=== PATIENT | female | born 1935 | race Caucasian/White ===

== ENCOUNTER 2018-08-19 17:38 | Inpatient (IN) | payer MEDICARE, OTHER ==
[~2018-08-19] VITALS: Ht 167.6 cm; Wt 68.0 kg
[2018-08-19] MEDS ORDERED: SODIUM CHLORIDE 0.9% 1,000 ML IV ONE (18:27)
[2018-08-19] MEDS ORDERED: ONDANSETRON HCL 4MG/2ML INJ IV STA (18:27)
[2018-08-19] MEDS ORDERED: MORPHINE SULFATE 4 MG/ML CPJ (NOT FOR IM USE) IV STA (18:27)
[2018-08-19 19:34] LABS: BASOPHILS % 0.3 % (0.0-2.0); EOSINOPHILS % 0.2 % (0.0-5.0); HEMATOCRIT. 31.1 % (36.0-48.0); HEMOGLOBIN. 10.1 g/dL (12.0-16.0); LYMPHOCYTES % 15.4 % (20.0-50.0); MEAN CORPUSCULAR HEMOGLOBIN 27.5 pg (28.0-32.0); MEAN PLATELET VOLUME 10.1 fl (7.4-10.4); MONOCYTES % 3.8 % (2.0-8.0); NEUTROPHILS % 80.3 % (40.0-76.0); PLATELET 191 x1000/uL (130-400); RED BLOOD CELL COUNT 3.66 mill/uL (4.2-5.4); RED CELL DISTRIBUTION WIDTH 17.4 % (11.6-14.6)
[2018-08-19 19:38] LABS: CHLORIDE 107 mEq/L (98-107)
[2018-08-19 19:39] LABS: INR 2.9; PARTIAL THROMBOPLASTIN TIME 35.5 sec (23.4-31.0); PROTHROMBIN TIME 28.7 sec (9.1-11.1)
[2018-08-19 19:47] LABS: CREATINE KINASE 61 IU/L (26-192)
[2018-08-20] VITALS (7 sets, daily range): BP systolic 112–132; BP diastolic 50–73
[2018-08-20] MEDS ORDERED: DEXTROSE 50% WATER 50ML SYRINGE IV PRN (02:15)
[2018-08-20] MEDS: BLOOD SUGAR DIAGNOSTIC STRIP TEST SCH ×4 (06:41→21:03)
[2018-08-20] MEDS: INSULIN LISPRO 100 UNITS/ML SUBCUT SCH ×4 (06:42→21:00)
[2018-08-20] MEDS: ASPIRIN 81MG TABLET PO SCH (08:50)
[2018-08-20] MEDS: HYDROCODONE/ACETAMINOPHEN 5/325MG TABLET PO PRN ×2 (08:50→17:46)
[2018-08-20] MEDS ORDERED: ENOXAPARIN 40MG/0.4ML SYR SUBCUT SCH (09:00)
[2018-08-20] MEDS ORDERED: ENOXAPARIN 30MG/0.3ML SYR SUBCUT SCH (09:00)
[2018-08-20 11:28] LABS: BASOPHILS % 0.3 % (0.0-2.0); EOSINOPHILS % 0.3 % (0.0-5.0); HEMATOCRIT. 30.2 % (36.0-48.0); HEMOGLOBIN. 9.9 g/dL (12.0-16.0); MEAN CORPUSCULAR HEMOGLOBIN 27.7 pg (28.0-32.0); MEAN CORPUSCULAR VOLUME 84.4 fL (81.0-99.0); MEAN PLATELET VOLUME 10.2 fl (7.4-10.4); MONOCYTES % 7.8 % (2.0-8.0); NEUTROPHILS % 66.6 % (40.0-76.0); PLATELET 169 x1000/uL (130-400); RED BLOOD CELL COUNT 3.58 mill/uL (4.2-5.4); RED CELL DISTRIBUTION WIDTH 17.2 % (11.6-14.6)
[2018-08-20 11:35] LABS: CHLORIDE 106 mEq/L (98-107)
[2018-08-20 11:43] LABS: LDL CHOLESTEROL 68 mg/dL (5-100)
[2018-08-20 11:44] LABS: CREATINE KINASE 71 IU/L (26-192); HDL CHOLESTEROL 69 mg/dL (40-59)
[2018-08-20 11:47] LABS: CREATINE KINASE MB FRACTION < 1.0 ng/mL (0.5-3.6)
[2018-08-20] MEDS ORDERED: CLONIDINE 0.1MG TABLET PO PRN (16:15)
[2018-08-20] MEDS ORDERED: SODIUM CHLORIDE 0.45% 1,000 ML IV SCH (16:30)
[2018-08-20 16:45] LABS: D-DIMER 1.39 mg/L FEU (<0.50); INR 2.3; PROTHROMBIN TIME 22.5 sec (9.1-11.1)
[2018-08-20 16:52] LABS: CREATINE KINASE 74 IU/L (26-192)
[2018-08-20 16:57] LABS: CREATINE KINASE MB FRACTION < 1.0 ng/mL (0.5-3.6)
[2018-08-20] MEDS ORDERED: LEVOFLOXACIN 500MG PREMIX 100 ML IV NR (18:00)
[2018-08-20 21:56] LABS: CREATINE KINASE 63 IU/L (26-192)
[2018-08-20 21:57] LABS: CREATINE KINASE MB FRACTION < 1.0 ng/mL (0.5-3.6)
[2018-08-21] VITALS: BP 129/60
[2018-08-21] MEDS: HYDROCODONE/ACETAMINOPHEN 5/325MG TABLET PO PRN ×4 (00:06→14:25)
[2018-08-21 04:00] VITALS: BP 128/75
[2018-08-21] MEDS: BLOOD SUGAR DIAGNOSTIC STRIP TEST SCH ×4 (06:39→21:10)
[2018-08-21] MEDS: INSULIN LISPRO 100 UNITS/ML SUBCUT SCH ×4 (06:39→21:00)
[2018-08-21 08:00] VITALS: BP_SYST 148; BP_SYST 151; BP_SYST 156; BP_DIAS 60; BP_DIAS 78; BP_DIAS 86
[2018-08-21] MEDS: ASPIRIN 81MG TABLET PO SCH (09:21)
[2018-08-21] MEDS: DOCUSATE SODIUM 100MG CAPSULE PO PRN (09:39)
[2018-08-21] MEDS ORDERED: IOHEXOL-350 100 ML BOTTLE ONE (11:08)
[2018-08-21 11:36] LABS: HEMATOCRIT 32.9 % (36.0-48.0); HEMOGLOBIN 10.8 g/dL (12.0-16.0); MEAN CORPUSCULAR HEMOGLOBIN 27.4 pg (28.0-32.0); MEAN CORPUSCULAR VOLUME 83.9 fL (81.0-99.0); PLATELET 182 x1000/uL (130-400); RED BLOOD CELL COUNT 3.93 mill/uL (4.2-5.4); RED CELL DISTRIBUTION WIDTH 17.5 % (11.6-14.6)
[2018-08-21 11:39] LABS: INR 1.5; PROTHROMBIN TIME 15.2 sec (9.1-11.1)
[2018-08-21 11:48] LABS: CHLORIDE 102 mEq/L (98-107)
[2018-08-21 12:00] VITALS: BP 173/77
[2018-08-21] MEDS ORDERED: CLONIDINE 0.2MG TABLET PO PRN (15:00)
[2018-08-21] MEDS: ENOXAPARIN 80MG/0.8ML SYR SUBCUT SCH (15:57)
[2018-08-21 16:00] VITALS: BP 147/91
[2018-08-21] MEDS: LEVOFLOXACIN 250MG PREMIX 50 ML IV SCH (18:09)
[2018-08-21] MEDS: DILTIAZEM HCL 30MG TABLET PO SCH (18:09)
[2018-08-21 20:00] VITALS: BP 145/76
[2018-08-22] VITALS (8 sets, daily range): BP systolic 104–141; BP diastolic 49–62
[2018-08-22] MEDS: HYDROCODONE/ACETAMINOPHEN 5/325MG TABLET PO PRN ×2 (00:11→06:12)
[2018-08-22] MEDS: DILTIAZEM HCL 30MG TABLET PO SCH ×4 (00:12→18:52)
[2018-08-22] MEDS: ENOXAPARIN 80MG/0.8ML SYR SUBCUT SCH ×2 (02:49→15:14)
[2018-08-22] MEDS: BLOOD SUGAR DIAGNOSTIC STRIP TEST SCH ×4 (06:14→21:31)
[2018-08-22] MEDS: INSULIN LISPRO 100 UNITS/ML SUBCUT SCH ×3 (06:15→21:00)
[2018-08-22 06:45] LABS: HEMATOCRIT 31.6 % (36.0-48.0); HEMOGLOBIN 10.5 g/dL (12.0-16.0); MEAN CORPUSCULAR HEMOGLOBIN 27.7 pg (28.0-32.0); MEAN CORPUSCULAR VOLUME 83.2 fL (81.0-99.0); PLATELET 171 x1000/uL (130-400); RED BLOOD CELL COUNT 3.79 mill/uL (4.2-5.4); RED CELL DISTRIBUTION WIDTH 17.1 % (11.6-14.6)
[2018-08-22 06:59] LABS: CHLORIDE 103 mEq/L (98-107)
[2018-08-22 07:19] LABS: LDL CHOLESTEROL 82 mg/dL (5-100)
[2018-08-22 07:21] LABS: HDL CHOLESTEROL 66 mg/dL (40-59)
[2018-08-22] MEDS: ASPIRIN 81MG TABLET PO SCH (09:11)
[2018-08-22] MEDS: ACETAMINOPHEN 325MG TABLET PO PRN ×3 (11:31→17:20)
[2018-08-22] MEDS: LEVOFLOXACIN 250MG PREMIX 50 ML IV SCH (18:52)
[2018-08-23] VITALS (7 sets, daily range): BP systolic 114–146; BP diastolic 50–70
[2018-08-23] MEDS: ACETAMINOPHEN 325MG TABLET PO PRN (01:10)
[2018-08-23] MEDS: ENOXAPARIN 80MG/0.8ML SYR SUBCUT SCH ×2 (01:11→13:46)
[2018-08-23] MEDS: DILTIAZEM HCL 30MG TABLET PO SCH ×4 (01:11→18:25)
[2018-08-23] MEDS: DOCUSATE SODIUM 100MG CAPSULE PO PRN (05:42)
[2018-08-23] MEDS: HYDROCODONE/ACETAMINOPHEN 5/325MG TABLET PO PRN ×2 (05:43→09:50)
[2018-08-23] MEDS: BLOOD SUGAR DIAGNOSTIC STRIP TEST SCH ×4 (05:53→21:00)
[2018-08-23] MEDS: INSULIN LISPRO 100 UNITS/ML SUBCUT SCH ×3 (05:53→17:15)
[2018-08-23 06:19] LABS: HEMATOCRIT. 31.8 % (36.0-48.0); HEMOGLOBIN. 10.6 g/dL (12.0-16.0); MEAN CORPUSCULAR HEMOGLOBIN 27.7 pg (28.0-32.0); MEAN CORPUSCULAR VOLUME 83.5 fL (81.0-99.0); MEAN PLATELET VOLUME 10.1 fl (7.4-10.4); PLATELET 179 x1000/uL (130-400); RED BLOOD CELL COUNT 3.81 mill/uL (4.2-5.4); RED CELL DISTRIBUTION WIDTH 17.2 % (11.6-14.6)
[2018-08-23 07:04] LABS: CHLORIDE 105 mEq/L (98-107)
[2018-08-23] MEDS: ASPIRIN 81MG TABLET PO SCH (08:23)
[2018-08-23 08:51] LABS: PLATELET ESTIMATE NORMAL
[2018-08-23 13:36] LABS: INR 1.2; PROTHROMBIN TIME 11.9 sec (9.6-11.0)
[2018-08-23] MEDS: LEVOFLOXACIN 250MG PREMIX 50 ML IV SCH (18:26)
== END 2018-08-23 21:45 | disposition home or self-care (01) | DRG 73 ==
LOC: ER 17:38 → 5WST 21:41 → EDBEDREQ 21:44 → EDBEDREQTM 21:44 → ENRESERV 22:29
PROVIDERS: ADMIT Internal Medicine; ATTEND Internal Medicine
DX: G90.8 Other disorders of autonomic nervous system (principal); I50.33 Acute on chronic diastolic (congestive) heart failure; D68.59 Other primary thrombophilia; E11.65 Type 2 diabetes mellitus with hyperglycemia; I48.2 Chronic atrial fibrillation; I35.0 Nonrheumatic aortic (valve) stenosis; I49.9 Cardiac arrhythmia, unspecified; I11.0 Hypertensive heart disease with heart failure; M48.061 Spinal stenosis, lumbar region without neurogenic claudication; D64.9 Anemia, unspecified; Z79.01 Long term (current) use of anticoagulants; Z87.891 Personal history of nicotine dependence
CPT/HCPCS: 36415; 71045; 71250; 71275; 72131; 80048; 80061; 82550; 82553; 82962; 83036; 83735; 83880; 84443; 84484; 85027; 85379; 93005; 93306; 93880; 93970; 96361; 96374; 96375; 97162; 99285; J1650; J1956; J2270; J2405; J7030; Q9967

== ENCOUNTER 2021-10-03 20:49 | Inpatient (IN) | payer MEDICARE ==
[~2021-10-03] VITALS: Ht 165.1 cm; Wt 65.8 kg
[2021-10-03 23:11] LABS: BASOPHILS % 0.5 % (0.0-2.0); EOSINOPHILS % 0.1 % (0.0-5.0); HEMATOCRIT. 33.6 % (36.0-48.0); MEAN CORPUSCULAR HEMOGLOBIN 28.4 pg (28.0-32.0); MEAN CORPUSCULAR VOLUME 86.6 fL (81.0-99.0); MEAN PLATELET VOLUME 9.1 fl (7.4-10.4); MONOCYTES % 10.3 % (2.0-8.0); NEUTROPHILS % 65.1 % (40.0-76.0); PLATELET 250 x1000/uL (130-400); RED BLOOD CELL COUNT 3.88 mill/uL (4.2-5.4); RED CELL DISTRIBUTION WIDTH 15.3 % (11.6-14.6)
[2021-10-03 23:18] LABS: CHLORIDE 103 mEq/L (98-107)
[2021-10-04 01:55] LABS: CLARITY URINE CLEAR (CLEAR); COLOR URINE YELLOW (YELLOW); KETONES URINE NEGATIVE (NEGATIVE); LEUKOCYTE ESTERASE URINE NEGATIVE (NEGATIVE); NITRITE URINE NEGATIVE (NEGATIVE); OCCULT BLOOD URINE NEGATIVE (NEGATIVE); PH URINE 5.5 (4.5-8.0); PROTEIN URINE NEGATIVE (NEGATIVE); SPECIFIC GRAVITY URINE 1.013 (1.005-1.030)
[2021-10-04] MEDS ORDERED: DEXTROSE 50% WATER 50ML SYRINGE IV PRN (11:15)
[2021-10-04] MEDS ORDERED: MAGNESIUM/ALUMINUM HYDROXIDE/SIMETHICONE 30ML UDC PO PRN (11:15)
[2021-10-04] MEDS ORDERED: ONDANSETRON HCL 4MG/2ML INJ IV PRN (11:15)
[2021-10-04] MEDS ORDERED: ACETAMINOPHEN 325MG TABLET PO PRN (11:15)
[2021-10-04] MEDS ORDERED: CLONIDINE 0.1MG TABLET PO PRN (11:15)
[2021-10-04] MEDS ORDERED: ZOLPIDEM TARTRATE 5MG TABLET PO PRN (11:15)
[2021-10-04] MEDS: DILTIAZEM HCL 30MG TABLET PO SCH ×2 (12:19→23:53)
[2021-10-04] MEDS: ENOXAPARIN 80MG/0.8ML SYR SUBCUT SCH ×2 (12:20→22:21)
[2021-10-04] MEDS: SODIUM CHLORIDE 0.9% INJ 3ML FLUSH IVF SCH ×2 (14:00→22:25)
[2021-10-04] MEDS: BLOOD SUGAR DIAGNOSTIC STRIP TEST SCH ×2 (14:01→21:53)
[2021-10-04] MEDS: INSULIN LISPRO 100 UNITS/ML SUBCUT SCH ×2 (14:09→22:22)
[2021-10-04] MEDS: LORAZEPAM 1MG TABLET PO SCH (17:37)
[2021-10-04 20:00] VITALS: BP 156/66
[2021-10-04] MEDS ORDERED: LORAZEPAM 2MG/ML CPJ IV NR (20:30)
[2021-10-04] MEDS ORDERED: DILTIAZEM HCL 5MG/ML 5ML VIAL IV NR (20:30)
[2021-10-04] MEDS ORDERED: QUET50TA PO (21:31)
[2021-10-04] MEDS ORDERED: APIX5TAB PO (21:31)
[2021-10-04] MEDS ORDERED: METF-414 PO (21:31)
[2021-10-04] MEDS ORDERED: SIMV-46 PO (21:31)
[2021-10-04] MEDS ORDERED: OMEP10CA5 MT (21:31)
[2021-10-04] MEDS: QUETIAPINE FUMARATE 25MG TABLET PO SCH (22:21)
[2021-10-04] MEDS: ATORVASTATIN CALCIUM 40MG TABLET PO SCH (22:21)
[2021-10-05] VITALS: BP 135/63
[2021-10-05 03:47] VITALS: BP 120/45
[2021-10-05] MEDS: BLOOD SUGAR DIAGNOSTIC STRIP TEST SCH ×4 (06:23→21:00)
[2021-10-05] MEDS: DILTIAZEM HCL 30MG TABLET PO SCH ×3 (06:24→09:29)
[2021-10-05] MEDS: OMEPRAZOLE 20MG CAPSULE EXTENDED RELEASE PO SCH (06:24)
[2021-10-05] MEDS: SODIUM CHLORIDE 0.9% INJ 3ML FLUSH IVF SCH ×3 (06:24→22:11)
[2021-10-05 06:57] LABS: BASOPHILS % 0.2 % (0.0-2.0); HEMATOCRIT. 32.8 % (36.0-48.0); HEMOGLOBIN. 10.8 g/dL (12.0-16.0); LYMPHOCYTES % 19.8 % (20.0-50.0); MEAN CORPUSCULAR HEMOGLOBIN 28.8 pg (28.0-32.0); MONOCYTES % 5.8 % (2.0-8.0); NEUTROPHILS % 74.2 % (40.0-76.0); PLATELET 266 x1000/uL (130-400); RED BLOOD CELL COUNT 3.76 mill/uL (4.2-5.4); RED CELL DISTRIBUTION WIDTH 14.9 % (11.6-14.6)
[2021-10-05 07:02] LABS: INR 1.2; PROTHROMBIN TIME 12.6 sec (9.6-11.0)
[2021-10-05 07:17] LABS: CHLORIDE 104 mEq/L (98-107)
[2021-10-05] MEDS: INSULIN LISPRO 100 UNITS/ML SUBCUT SCH ×4 (07:50→22:13)
[2021-10-05 08:00] VITALS: BP 148/46
[2021-10-05] MEDS: APIXABAN 5 MG TABLET PO SCH ×2 (09:28→17:06)
[2021-10-05] MEDS: METFORMIN HCL 500MG TABLET PO SCH (09:28)
[2021-10-05] MEDS: QUETIAPINE FUMARATE 25MG TABLET PO SCH ×2 (09:28→22:10)
[2021-10-05] MEDS: LORAZEPAM 1MG TABLET PO SCH (09:29)
[2021-10-05] MEDS ORDERED: POTASSIUM CHLORIDE 20MEQ/PACKET PO SCH (10:00)
[2021-10-05] MEDS ORDERED: LEVO75TA7 PO (11:47)
[2021-10-05] MEDS ORDERED: POLY17PO3 MT (11:48)
[2021-10-05 12:00] VITALS: BP 102/43
[2021-10-05 16:00] VITALS: BP 117/54
[2021-10-05] MEDS: DILTIAZEM HCL 60MG TABLET PO SCH ×2 (17:05→22:11)
[2021-10-05] MEDS: LORAZEPAM 0.5MG TABLET PO SCH (17:06)
[2021-10-05] MEDS: ACETAMINOPHEN 325MG TABLET PO PRN (19:15)
[2021-10-05 20:00] VITALS: BP 131/57
[2021-10-05] MEDS ORDERED: CARVEDILOL 6.25 MG TABLET PO SCH (21:00)
[2021-10-05] MEDS: ATORVASTATIN CALCIUM 40MG TABLET PO SCH (22:10)
[2021-10-06] VITALS (64 sets, daily range): BP systolic 68–148; BP diastolic 33–85
[2021-10-06] MEDS: DOPAMINE 400MG/250ML PREMIX 250 ML IV PRN ×2 (01:15→10:45)
[2021-10-06] MEDS ORDERED: SODIUM CHLORIDE 0.9% 1000ML BAG (SEPSIS BOLUS) IV STA (01:55)
[2021-10-06] MEDS: DEXT 5%/0.45% NACL 1000ML 1,000 ML IV SCH ×2 (03:02→22:51)
[2021-10-06 04:41] LABS: CHLORIDE 105 mEq/L (98-107)
[2021-10-06] MEDS: OMEPRAZOLE 20MG CAPSULE EXTENDED RELEASE PO SCH (05:43)
[2021-10-06] MEDS: LEVOTHYROXINE SODIUM 75MCG TABLET PO SCH (05:44)
[2021-10-06] MEDS: SODIUM CHLORIDE 0.9% INJ 3ML FLUSH IVF SCH ×3 (05:44→22:30)
[2021-10-06] MEDS: BLOOD SUGAR DIAGNOSTIC STRIP TEST SCH ×4 (06:23→21:00)
[2021-10-06] MEDS: INSULIN LISPRO 100 UNITS/ML SUBCUT SCH ×4 (06:27→21:00)
[2021-10-06 06:34] LABS: BASOPHILS % 0.3 % (0.0-2.0); EOSINOPHILS % 0.5 % (0.0-5.0); HEMATOCRIT. 32.7 % (36.0-48.0); LYMPHOCYTES % 13.3 % (20.0-50.0); MEAN CORPUSCULAR HEMOGLOBIN 28.8 pg (28.0-32.0); MEAN PLATELET VOLUME 10.2 fl (7.4-10.4); MONOCYTES % 6.6 % (2.0-8.0); NEUTROPHILS % 79.3 % (40.0-76.0); PLATELET 286 x1000/uL (130-400); RED BLOOD CELL COUNT 3.81 mill/uL (4.2-5.4); RED CELL DISTRIBUTION WIDTH 15.1 % (11.6-14.6)
[2021-10-06] MEDS: POLYETHYLENE GLYCOL 3350 (17GM) 1 DOSE PACK PO SCH (08:39)
[2021-10-06] MEDS: LORAZEPAM 0.5MG TABLET PO SCH ×2 (09:00→17:00)
[2021-10-06] MEDS: QUETIAPINE FUMARATE 25MG TABLET PO SCH ×2 (09:17→22:29)
[2021-10-06] MEDS: APIXABAN 5 MG TABLET PO SCH ×2 (09:17→17:15)
[2021-10-06] MEDS: METFORMIN HCL 500MG TABLET PO SCH (09:18)
[2021-10-06] MEDS: ACETAMINOPHEN 325MG TABLET PO PRN (09:19)
[2021-10-06] MEDS: ATORVASTATIN CALCIUM 40MG TABLET PO SCH (22:29)
[2021-10-07] VITALS: BP 136/49
[2021-10-07 04:00] VITALS: BP 142/75
[2021-10-07] MEDS: SODIUM CHLORIDE 0.9% INJ 3ML FLUSH IVF SCH ×3 (06:20→21:38)
[2021-10-07] MEDS: BLOOD SUGAR DIAGNOSTIC STRIP TEST SCH ×4 (06:21→21:39)
[2021-10-07] MEDS: LEVOTHYROXINE SODIUM 75MCG TABLET PO SCH (07:40)
[2021-10-07 08:00] VITALS: BP 156/65
[2021-10-07] MEDS: INSULIN LISPRO 100 UNITS/ML SUBCUT SCH ×4 (08:10→21:39)
[2021-10-07] MEDS: OMEPRAZOLE 20MG CAPSULE EXTENDED RELEASE PO SCH (08:33)
[2021-10-07] MEDS: APIXABAN 5 MG TABLET PO SCH ×2 (08:34→18:24)
[2021-10-07] MEDS: METFORMIN HCL 500MG TABLET PO SCH (08:34)
[2021-10-07] MEDS: QUETIAPINE FUMARATE 25MG TABLET PO SCH ×2 (08:34→21:38)
[2021-10-07] MEDS: POLYETHYLENE GLYCOL 3350 (17GM) 1 DOSE PACK PO SCH (08:35)
[2021-10-07] MEDS: LORAZEPAM 0.5MG TABLET PO SCH ×2 (09:00→17:00)
[2021-10-07 12:00] VITALS: BP 138/79
[2021-10-07 16:00] VITALS: BP 168/68
[2021-10-07 17:12] LABS: BASOPHILS % 0.3 % (0.0-2.0); EOSINOPHILS % 0.2 % (0.0-5.0); HEMOGLOBIN. 10.6 g/dL (12.0-16.0); LYMPHOCYTES % 19.3 % (20.0-50.0); MEAN CORPUSCULAR HEMOGLOBIN 28.8 pg (28.0-32.0); MEAN CORPUSCULAR VOLUME 87.1 fL (81.0-99.0); MEAN PLATELET VOLUME 10.2 fl (7.4-10.4); MONOCYTES % 7.3 % (2.0-8.0); NEUTROPHILS % 72.9 % (40.0-76.0); PLATELET 296 x1000/uL (130-400); RED BLOOD CELL COUNT 3.67 mill/uL (4.2-5.4); RED CELL DISTRIBUTION WIDTH 14.9 % (11.6-14.6)
[2021-10-07 17:20] LABS: CHLORIDE 104 mEq/L (98-107)
[2021-10-07 17:33] LABS: T4 FREE 1.07 ng/dL (0.76-1.46)
[2021-10-07] MEDS: DEXT 5%/0.45% NACL 1000ML 1,000 ML IV SCH (18:25)
[2021-10-07 20:00] VITALS: BP 141/92
[2021-10-07] MEDS: ATORVASTATIN CALCIUM 40MG TABLET PO SCH (21:38)
[2021-10-08] VITALS: BP 151/65
[2021-10-08] MEDS: ACETAMINOPHEN 325MG TABLET PO PRN (00:28)
[2021-10-08 04:00] VITALS: BP 130/60
[2021-10-08] MEDS: BLOOD SUGAR DIAGNOSTIC STRIP TEST SCH ×4 (06:21→21:26)
[2021-10-08] MEDS: LEVOTHYROXINE SODIUM 75MCG TABLET PO SCH (06:21)
[2021-10-08] MEDS: SODIUM CHLORIDE 0.9% INJ 3ML FLUSH IVF SCH ×3 (06:21→21:26)
[2021-10-08] MEDS ORDERED: FAMOTIDINE 20MG TABLET PO SCH (07:40)
[2021-10-08 08:00] VITALS: BP 152/60
[2021-10-08] MEDS: INSULIN LISPRO 100 UNITS/ML SUBCUT SCH ×4 (08:10→21:00)
[2021-10-08] MEDS: QUETIAPINE FUMARATE 25MG TABLET PO SCH ×2 (08:45→21:25)
[2021-10-08] MEDS: METFORMIN HCL 500MG TABLET PO SCH (08:45)
[2021-10-08] MEDS: FAMOTIDINE 20MG TABLET PO SCH (08:45)
[2021-10-08] MEDS: APIXABAN 5 MG TABLET PO SCH ×2 (08:45→17:38)
[2021-10-08] MEDS: LORAZEPAM 0.5MG TABLET PO SCH ×2 (08:45→17:38)
[2021-10-08] MEDS: POLYETHYLENE GLYCOL 3350 (17GM) 1 DOSE PACK PO SCH (08:50)
[2021-10-08 11:56] LABS: BASOPHILS % 0.2 % (0.0-2.0); EOSINOPHILS % 0.5 % (0.0-5.0); HEMATOCRIT. 29.8 % (36.0-48.0); LYMPHOCYTES % 16.5 % (20.0-50.0); MEAN CORPUSCULAR HEMOGLOBIN 29.2 pg (28.0-32.0); MEAN CORPUSCULAR VOLUME 87.4 fL (81.0-99.0); MEAN PLATELET VOLUME 10.2 fl (7.4-10.4); MONOCYTES % 9.6 % (2.0-8.0); NEUTROPHILS % 73.2 % (40.0-76.0); PLATELET 294 x1000/uL (130-400); RED BLOOD CELL COUNT 3.41 mill/uL (4.2-5.4); RED CELL DISTRIBUTION WIDTH 14.9 % (11.6-14.6)
[2021-10-08 12:00] VITALS: BP 124/56
[2021-10-08 12:25] LABS: CHLORIDE 105 mEq/L (98-107)
[2021-10-08] MEDS ORDERED: LEVO50TA MT (15:42)
[2021-10-08 16:00] VITALS: BP 121/58
[2021-10-08 20:00] VITALS: BP 141/76
[2021-10-08] MEDS: ATORVASTATIN CALCIUM 40MG TABLET PO SCH (21:25)
[2021-10-09] VITALS (7 sets, daily range): BP systolic 69–152; BP diastolic 24–66
[2021-10-09] MEDS: SODIUM CHLORIDE 0.9% INJ 3ML FLUSH IVF SCH ×3 (06:13→21:04)
[2021-10-09] MEDS: INSULIN LISPRO 100 UNITS/ML SUBCUT SCH ×4 (08:10→21:02)
[2021-10-09] MEDS: LEVOTHYROXINE SODIUM 75MCG TABLET PO SCH (08:31)
[2021-10-09] MEDS: METFORMIN HCL 500MG TABLET PO SCH (08:32)
[2021-10-09] MEDS: FAMOTIDINE 20MG TABLET PO SCH (08:32)
[2021-10-09] MEDS: LORAZEPAM 0.5MG TABLET PO SCH ×2 (08:32→16:36)
[2021-10-09] MEDS: QUETIAPINE FUMARATE 25MG TABLET PO SCH (08:32)
[2021-10-09] MEDS: BLOOD SUGAR DIAGNOSTIC STRIP TEST SCH ×4 (08:32→20:55)
[2021-10-09] MEDS: APIXABAN 5 MG TABLET PO SCH ×2 (08:32→16:39)
[2021-10-09] MEDS: POLYETHYLENE GLYCOL 3350 (17GM) 1 DOSE PACK PO SCH (08:33)
[2021-10-09] MEDS: DEXT 5%/0.45% NACL 1000ML 1,000 ML IV SCH (08:41)
[2021-10-09] MEDS: ACETAMINOPHEN 325MG TABLET PO PRN (16:39)
[2021-10-09] MEDS: ATORVASTATIN CALCIUM 40MG TABLET PO SCH (21:00)
[2021-10-10] VITALS: BP 140/69
[2021-10-10 04:00] VITALS: BP 162/70
[2021-10-10] MEDS: DEXT 5%/0.45% NACL 1000ML 1,000 ML IV SCH (05:00)
[2021-10-10] MEDS: SODIUM CHLORIDE 0.9% INJ 3ML FLUSH IVF SCH ×3 (05:01→20:10)
[2021-10-10] MEDS: BLOOD SUGAR DIAGNOSTIC STRIP TEST SCH ×4 (07:09→20:06)
[2021-10-10 07:49] VITALS: BP 140/71
[2021-10-10] MEDS: FAMOTIDINE 20MG TABLET PO SCH (08:08)
[2021-10-10] MEDS: METFORMIN HCL 500MG TABLET PO SCH (08:08)
[2021-10-10] MEDS: INSULIN LISPRO 100 UNITS/ML SUBCUT SCH ×4 (08:08→20:09)
[2021-10-10] MEDS: APIXABAN 5 MG TABLET PO SCH ×2 (08:08→16:35)
[2021-10-10] MEDS: LEVOTHYROXINE SODIUM 75MCG TABLET PO SCH (08:08)
[2021-10-10] MEDS: POLYETHYLENE GLYCOL 3350 (17GM) 1 DOSE PACK PO SCH (08:09)
[2021-10-10 11:48] VITALS: BP 144/71
[2021-10-10 15:35] VITALS: BP_SYST 158; BP_SYST 172; BP_DIAS 59; BP_DIAS 78
[2021-10-10] MEDS: ACETAMINOPHEN 325MG TABLET PO PRN (17:28)
[2021-10-10 20:00] VITALS: BP 131/60
[2021-10-10] MEDS: ATORVASTATIN CALCIUM 40MG TABLET PO SCH (20:02)
[2021-10-11] VITALS: BP 128/65
[2021-10-11] MEDS: DEXT 5%/0.45% NACL 1000ML 1,000 ML IV SCH (02:30)
[2021-10-11] MEDS: ACETAMINOPHEN 325MG TABLET PO PRN (03:19)
[2021-10-11] MEDS: LEVOTHYROXINE SODIUM 75MCG TABLET PO SCH (06:41)
[2021-10-11] MEDS: SODIUM CHLORIDE 0.9% INJ 3ML FLUSH IVF SCH ×3 (06:41→21:26)
[2021-10-11] MEDS: BLOOD SUGAR DIAGNOSTIC STRIP TEST SCH ×4 (06:49→21:26)
[2021-10-11] MEDS: INSULIN LISPRO 100 UNITS/ML SUBCUT SCH ×4 (06:49→21:00)
[2021-10-11 08:00] VITALS: BP 138/57
[2021-10-11] MEDS: POLYETHYLENE GLYCOL 3350 (17GM) 1 DOSE PACK PO SCH (09:16)
[2021-10-11] MEDS: METFORMIN HCL 500MG TABLET PO SCH (09:16)
[2021-10-11] MEDS: FAMOTIDINE 20MG TABLET PO SCH (09:16)
[2021-10-11] MEDS: APIXABAN 5 MG TABLET PO SCH ×2 (09:16→16:58)
[2021-10-11 12:00] VITALS: BP 153/62
[2021-10-11 16:00] VITALS: BP 134/57
[2021-10-11] MEDS ORDERED: LORAZEPAM 2MG/ML CPJ IV NR (16:00)
[2021-10-11 20:00] VITALS: BP 120/60
[2021-10-11] MEDS: ATORVASTATIN CALCIUM 40MG TABLET PO SCH (22:12)
[2021-10-12] VITALS: BP 118/70
[2021-10-12 04:00] VITALS: BP 122/65
[2021-10-12] MEDS: SODIUM CHLORIDE 0.9% INJ 3ML FLUSH IVF SCH ×3 (06:20→21:20)
[2021-10-12] MEDS: INSULIN LISPRO 100 UNITS/ML SUBCUT SCH ×4 (07:02→21:00)
[2021-10-12] MEDS: BLOOD SUGAR DIAGNOSTIC STRIP TEST SCH ×4 (07:02→21:13)
[2021-10-12] MEDS: LEVOTHYROXINE SODIUM 75MCG TABLET PO SCH (07:06)
[2021-10-12 07:29] LABS: BASOPHILS % 0.6 % (0.0-2.0); EOSINOPHILS % 0.8 % (0.0-5.0); HEMATOCRIT. 30.4 % (36.0-48.0); HEMOGLOBIN. 10.3 g/dL (12.0-16.0); LYMPHOCYTES % 19.1 % (20.0-50.0); MEAN CORPUSCULAR HEMOGLOBIN 29.1 pg (28.0-32.0); MEAN CORPUSCULAR VOLUME 86.1 fL (81.0-99.0); MEAN PLATELET VOLUME 10.2 fl (7.4-10.4); MONOCYTES % 7.4 % (2.0-8.0); NEUTROPHILS % 72.1 % (40.0-76.0); PLATELET 358 x1000/uL (130-400); RED BLOOD CELL COUNT 3.53 mill/uL (4.2-5.4); RED CELL DISTRIBUTION WIDTH 14.6 % (11.6-14.6)
[2021-10-12 07:41] LABS: CHLORIDE 103 mEq/L (98-107)
[2021-10-12 08:00] VITALS: BP 141/70
[2021-10-12] MEDS ORDERED: POTASSIUM CHLORIDE 20MEQ/PACKET PO NR (09:45)
[2021-10-12] MEDS: POLYETHYLENE GLYCOL 3350 (17GM) 1 DOSE PACK PO SCH (09:59)
[2021-10-12] MEDS: APIXABAN 5 MG TABLET PO SCH ×2 (09:59→17:00)
[2021-10-12] MEDS: FAMOTIDINE 20MG TABLET PO SCH (10:00)
[2021-10-12] MEDS: METFORMIN HCL 500MG TABLET PO SCH (10:00)
[2021-10-12 12:00] VITALS: BP_SYST 126; BP_SYST 155; BP_DIAS 58; BP_DIAS 60
[2021-10-12 16:00] VITALS: BP 142/74
[2021-10-12 20:00] VITALS: BP 116/70
[2021-10-12] MEDS: ATORVASTATIN CALCIUM 40MG TABLET PO SCH (21:15)
[2021-10-13] VITALS: BP 133/88
[2021-10-13 04:00] VITALS: BP 145/59
[2021-10-13] MEDS: SODIUM CHLORIDE 0.9% INJ 3ML FLUSH IVF SCH ×3 (06:00→21:22)
[2021-10-13] MEDS: INSULIN LISPRO 100 UNITS/ML SUBCUT SCH ×4 (07:07→21:00)
[2021-10-13] MEDS: LEVOTHYROXINE SODIUM 75MCG TABLET PO SCH (07:07)
[2021-10-13] MEDS: BLOOD SUGAR DIAGNOSTIC STRIP TEST SCH ×4 (07:07→21:08)
[2021-10-13 08:00] VITALS: BP 155/57
[2021-10-13 08:10] LABS: BASOPHILS % 0.5 % (0.0-2.0); EOSINOPHILS % 0.8 % (0.0-5.0); HEMATOCRIT. 28.7 % (36.0-48.0); HEMOGLOBIN. 9.5 g/dL (12.0-16.0); LYMPHOCYTES % 20.8 % (20.0-50.0); MEAN CORPUSCULAR HEMOGLOBIN 28.4 pg (28.0-32.0); MEAN CORPUSCULAR VOLUME 85.5 fL (81.0-99.0); MEAN PLATELET VOLUME 10.2 fl (7.4-10.4); MONOCYTES % 9.2 % (2.0-8.0); NEUTROPHILS % 68.7 % (40.0-76.0); PLATELET 393 x1000/uL (130-400); RED BLOOD CELL COUNT 3.35 mill/uL (4.2-5.4); RED CELL DISTRIBUTION WIDTH 14.9 % (11.6-14.6)
[2021-10-13 08:18] LABS: CHLORIDE 103 mEq/L (98-107)
[2021-10-13] MEDS: FAMOTIDINE 20MG TABLET PO SCH (09:09)
[2021-10-13] MEDS: APIXABAN 5 MG TABLET PO SCH ×2 (09:09→17:42)
[2021-10-13] MEDS: POLYETHYLENE GLYCOL 3350 (17GM) 1 DOSE PACK PO SCH (09:10)
[2021-10-13] MEDS: METFORMIN HCL 500MG TABLET PO SCH (09:10)
[2021-10-13 12:00] VITALS: BP 146/66
[2021-10-13] MEDS ORDERED: LORAZEPAM 2MG/ML CPJ IV NR (12:15)
[2021-10-13 16:00] VITALS: BP 123/65
[2021-10-13 20:00] VITALS: BP 138/53
[2021-10-13] MEDS: ATORVASTATIN CALCIUM 40MG TABLET PO SCH (21:22)
[2021-10-14] VITALS: BP 129/69
[2021-10-14 04:00] VITALS: BP 122/87
[2021-10-14] MEDS: BLOOD SUGAR DIAGNOSTIC STRIP TEST SCH ×4 (05:55→21:00)
[2021-10-14] MEDS: SODIUM CHLORIDE 0.9% INJ 3ML FLUSH IVF SCH ×3 (06:05→21:22)
[2021-10-14] MEDS: LEVOTHYROXINE SODIUM 75MCG TABLET PO SCH (06:05)
[2021-10-14 08:00] VITALS: BP 125/59
[2021-10-14] MEDS: INSULIN LISPRO 100 UNITS/ML SUBCUT SCH ×4 (09:31→21:00)
[2021-10-14] MEDS: METFORMIN HCL 500MG TABLET PO SCH (09:32)
[2021-10-14] MEDS: FAMOTIDINE 20MG TABLET PO SCH (09:32)
[2021-10-14] MEDS: APIXABAN 5 MG TABLET PO SCH ×2 (09:32→16:09)
[2021-10-14] MEDS: POLYETHYLENE GLYCOL 3350 (17GM) 1 DOSE PACK PO SCH (09:32)
[2021-10-14 12:00] VITALS: BP 95/59
[2021-10-14] MEDS ORDERED: LORAZEPAM 2MG/ML CPJ IV PRN (12:30)
[2021-10-14] MEDS ORDERED: HYDROCODONE/ACETAMINOPHEN 5/325MG TABLET PO PRN (12:30)
[2021-10-14] MEDS ORDERED: NALOXONE HCL 0.4MG/ML VIAL IV PRN (12:45)
[2021-10-14 16:00] VITALS: BP 146/68
[2021-10-14 20:00] VITALS: BP 96/75
[2021-10-14] MEDS: ATORVASTATIN CALCIUM 40MG TABLET PO SCH (21:21)
[2021-10-15] VITALS: BP 144/79
[2021-10-15 04:00] VITALS: BP 128/73
[2021-10-15] MEDS: BLOOD SUGAR DIAGNOSTIC STRIP TEST SCH ×4 (05:48→20:46)
[2021-10-15] MEDS: SODIUM CHLORIDE 0.9% INJ 3ML FLUSH IVF SCH ×3 (05:48→20:44)
[2021-10-15 08:00] VITALS: BP 133/43
[2021-10-15] MEDS: INSULIN LISPRO 100 UNITS/ML SUBCUT SCH ×4 (08:10→20:46)
[2021-10-15] MEDS: METFORMIN HCL 500MG TABLET PO SCH (10:48)
[2021-10-15] MEDS: FAMOTIDINE 20MG TABLET PO SCH (10:48)
[2021-10-15] MEDS: POLYETHYLENE GLYCOL 3350 (17GM) 1 DOSE PACK PO SCH (10:48)
[2021-10-15] MEDS: APIXABAN 5 MG TABLET PO SCH ×2 (10:48→17:35)
[2021-10-15] MEDS: LEVOTHYROXINE SODIUM 75MCG TABLET PO SCH (10:49)
[2021-10-15 12:00] VITALS: BP 125/65
[2021-10-15 16:00] VITALS: BP 143/85
[2021-10-15 16:52] LABS: BASOPHILS % 0.1 % (0.0-2.0); EOSINOPHILS % 0.3 % (0.0-5.0); HEMATOCRIT. 30.9 % (36.0-48.0); HEMOGLOBIN. 10.3 g/dL (12.0-16.0); LYMPHOCYTES % 16.7 % (20.0-50.0); MEAN CORPUSCULAR HEMOGLOBIN 28.7 pg (28.0-32.0); MEAN CORPUSCULAR VOLUME 86.5 fL (81.0-99.0); MEAN PLATELET VOLUME 9.2 fl (7.4-10.4); MONOCYTES % 6.8 % (2.0-8.0); NEUTROPHILS % 76.1 % (40.0-76.0); PLATELET 448 x1000/uL (130-400); RED BLOOD CELL COUNT 3.57 mill/uL (4.2-5.4); RED CELL DISTRIBUTION WIDTH 15.3 % (11.6-14.6)
[2021-10-15 17:07] LABS: CHLORIDE 100 mEq/L (98-107)
[2021-10-15 20:00] VITALS: BP 126/65
[2021-10-15] MEDS: ATORVASTATIN CALCIUM 40MG TABLET PO SCH (20:44)
[2021-10-15] MEDS ORDERED: POTASSIUM CHLORIDE 20MEQ TABLET SR PO NR (20:45)
[2021-10-16] VITALS: BP 123/79
[2021-10-16 04:00] VITALS: BP 128/57
[2021-10-16] MEDS: BLOOD SUGAR DIAGNOSTIC STRIP TEST SCH ×4 (06:20→21:30)
[2021-10-16] MEDS: INSULIN LISPRO 100 UNITS/ML SUBCUT SCH ×4 (06:20→21:30)
[2021-10-16] MEDS: SODIUM CHLORIDE 0.9% INJ 3ML FLUSH IVF SCH ×3 (06:23→21:31)
[2021-10-16 08:00] VITALS: BP 144/86
[2021-10-16] MEDS: METFORMIN HCL 500MG TABLET PO SCH (09:45)
[2021-10-16] MEDS: APIXABAN 5 MG TABLET PO SCH ×2 (09:45→17:01)
[2021-10-16] MEDS: POLYETHYLENE GLYCOL 3350 (17GM) 1 DOSE PACK PO SCH (09:45)
[2021-10-16] MEDS: LEVOTHYROXINE SODIUM 75MCG TABLET PO SCH (09:45)
[2021-10-16] MEDS: FAMOTIDINE 20MG TABLET PO SCH (09:45)
[2021-10-16 12:00] VITALS: BP 151/56
[2021-10-16 16:00] VITALS: BP 119/60
[2021-10-16 20:00] VITALS: BP 120/56
[2021-10-16] MEDS: ATORVASTATIN CALCIUM 40MG TABLET PO SCH (21:30)
[2021-10-17] VITALS: BP 116/53
[2021-10-17 04:00] VITALS: BP 123/48
[2021-10-17] MEDS: SODIUM CHLORIDE 0.9% INJ 3ML FLUSH IVF SCH ×3 (05:24→21:16)
[2021-10-17] MEDS: INSULIN LISPRO 100 UNITS/ML SUBCUT SCH ×4 (06:01→21:15)
[2021-10-17] MEDS: BLOOD SUGAR DIAGNOSTIC STRIP TEST SCH ×4 (06:01→21:15)
[2021-10-17] MEDS: ACETAMINOPHEN 325MG TABLET PO PRN (06:05)
[2021-10-17 08:00] VITALS: BP 131/53
[2021-10-17] MEDS: FAMOTIDINE 20MG TABLET PO SCH (10:15)
[2021-10-17] MEDS: LEVOTHYROXINE SODIUM 75MCG TABLET PO SCH (10:16)
[2021-10-17] MEDS: APIXABAN 5 MG TABLET PO SCH ×2 (10:16→18:01)
[2021-10-17] MEDS: POLYETHYLENE GLYCOL 3350 (17GM) 1 DOSE PACK PO SCH (10:16)
[2021-10-17] MEDS: METFORMIN HCL 500MG TABLET PO SCH (10:16)
[2021-10-17 12:00] VITALS: BP 103/54
[2021-10-17 16:00] VITALS: BP 135/66
[2021-10-17 17:34] LABS: HEMATOCRIT 32.8 % (36.0-48.0); HEMOGLOBIN 10.9 g/dL (12.0-16.0); MEAN CORPUSCULAR HEMOGLOBIN 28.7 pg (28.0-32.0); MEAN CORPUSCULAR VOLUME 86.8 fL (81.0-99.0); PLATELET 471 x1000/uL (130-400); RED BLOOD CELL COUNT 3.78 mill/uL (4.2-5.4); RED CELL DISTRIBUTION WIDTH 15.5 % (11.6-14.6)
[2021-10-17 17:57] LABS: CHLORIDE 99 mEq/L (98-107)
[2021-10-17] MEDS ORDERED: APIX5TAB MT (18:13)
[2021-10-17] MEDS ORDERED: METF-414 PO (18:24)
[2021-10-17] MEDS ORDERED: OMEP20CA14 PO (18:24)
[2021-10-17] MEDS ORDERED: SIMV-46 PO (18:25)
[2021-10-17] MEDS ORDERED: LORA-249 PO (18:31)
[2021-10-17] MEDS ORDERED: CHOL2000 PO (18:31)
[2021-10-17] MEDS ORDERED: POLY17PO3 PO (18:31)
[2021-10-17] MEDS ORDERED: DONE5TAB33 PO (18:31)
[2021-10-17 20:00] VITALS: BP 118/57
[2021-10-17] MEDS: ATORVASTATIN CALCIUM 40MG TABLET PO SCH (21:19)
[2021-10-18] VITALS: BP 122/46
[2021-10-18 04:00] VITALS: BP 115/73
[2021-10-18] MEDS: SODIUM CHLORIDE 0.9% INJ 3ML FLUSH IVF SCH ×3 (06:26→21:27)
[2021-10-18] MEDS: LEVOTHYROXINE SODIUM 75MCG TABLET PO SCH (06:26)
[2021-10-18] MEDS: BLOOD SUGAR DIAGNOSTIC STRIP TEST SCH ×4 (07:18→21:28)
[2021-10-18 08:00] VITALS: BP 136/70
[2021-10-18] MEDS: INSULIN LISPRO 100 UNITS/ML SUBCUT SCH ×4 (08:10→21:27)
[2021-10-18] MEDS: POLYETHYLENE GLYCOL 3350 (17GM) 1 DOSE PACK PO SCH (09:38)
[2021-10-18] MEDS: FAMOTIDINE 20MG TABLET PO SCH (09:38)
[2021-10-18] MEDS: METFORMIN HCL 500MG TABLET PO SCH (09:38)
[2021-10-18] MEDS: APIXABAN 5 MG TABLET PO SCH ×2 (09:38→17:35)
[2021-10-18] MEDS ORDERED: CEFTRIAXONE 1 G PREMIX 50 ML IV SCH (10:45)
[2021-10-18 12:00] VITALS: BP 128/79
[2021-10-18] MEDS: CEFTRIAXONE 1,000 MG in DEXTROSE 5% WATER 50 ML IV SCH (12:54)
[2021-10-18] MEDS: ACETAMINOPHEN 325MG TABLET PO PRN (14:00)
[2021-10-18 16:00] VITALS: BP 118/79
[2021-10-18 20:00] VITALS: BP 104/51
[2021-10-18 20:32] LABS: BASOPHILS % 0.3 % (0.0-2.0); EOSINOPHILS % 0.9 % (0.0-5.0); HEMATOCRIT. 30.3 % (36.0-48.0); HEMOGLOBIN. 9.9 g/dL (12.0-16.0); LYMPHOCYTES % 17.1 % (20.0-50.0); MEAN CORPUSCULAR HEMOGLOBIN 28.3 pg (28.0-32.0); MEAN CORPUSCULAR VOLUME 86.6 fL (81.0-99.0); MEAN PLATELET VOLUME 9.2 fl (7.4-10.4); MONOCYTES % 9.2 % (2.0-8.0); NEUTROPHILS % 72.5 % (40.0-76.0); PLATELET 457 x1000/uL (130-400); RED BLOOD CELL COUNT 3.49 mill/uL (4.2-5.4); RED CELL DISTRIBUTION WIDTH 15.2 % (11.6-14.6)
[2021-10-18 20:59] LABS: CHLORIDE 102 mEq/L (98-107)
[2021-10-18] MEDS: ATORVASTATIN CALCIUM 40MG TABLET PO SCH (21:26)
[2021-10-19] VITALS: BP 99/49
[2021-10-19 04:00] VITALS: BP 123/53
[2021-10-19 05:58] LABS: CLARITY URINE CLOUDY (CLEAR); COLOR URINE YELLOW (YELLOW); KETONES URINE NEGATIVE (NEGATIVE); LEUKOCYTE ESTERASE URINE 3+ (NEGATIVE); NITRITE URINE NEGATIVE (NEGATIVE); OCCULT BLOOD URINE NEGATIVE (NEGATIVE); PROTEIN URINE TRACE (NEGATIVE); SPECIFIC GRAVITY URINE 1.019 (1.005-1.030)
[2021-10-19] MEDS: SODIUM CHLORIDE 0.9% INJ 3ML FLUSH IVF SCH ×3 (06:36→22:08)
[2021-10-19] MEDS: LEVOTHYROXINE SODIUM 75MCG TABLET PO SCH (06:36)
[2021-10-19] MEDS: BLOOD SUGAR DIAGNOSTIC STRIP TEST SCH ×4 (06:38→21:00)
[2021-10-19 08:00] VITALS: BP 133/55
[2021-10-19] MEDS: INSULIN LISPRO 100 UNITS/ML SUBCUT SCH ×4 (08:10→22:08)
[2021-10-19] MEDS: APIXABAN 5 MG TABLET PO SCH ×2 (09:30→17:44)
[2021-10-19] MEDS: POLYETHYLENE GLYCOL 3350 (17GM) 1 DOSE PACK PO SCH (09:30)
[2021-10-19] MEDS: FAMOTIDINE 20MG TABLET PO SCH (09:30)
[2021-10-19] MEDS: METFORMIN HCL 500MG TABLET PO SCH (09:30)
[2021-10-19 12:00] VITALS: BP 104/69
[2021-10-19] MEDS: CEFTRIAXONE 1,000 MG in DEXTROSE 5% WATER 50 ML IV SCH (13:09)
[2021-10-19 16:00] VITALS: BP 116/47
[2021-10-19] MEDS: LORAZEPAM 2MG/ML CPJ IV PRN (18:32)
[2021-10-19 20:00] VITALS: BP 112/40
[2021-10-19] MEDS: ATORVASTATIN CALCIUM 40MG TABLET PO SCH (22:06)
[2021-10-20] VITALS: BP 114/45
[2021-10-20 04:00] VITALS: BP 117/53
[2021-10-20] MEDS: LEVOTHYROXINE SODIUM 75MCG TABLET PO SCH (05:36)
[2021-10-20] MEDS: SODIUM CHLORIDE 0.9% INJ 3ML FLUSH IVF SCH ×3 (05:36→21:32)
[2021-10-20] MEDS: BLOOD SUGAR DIAGNOSTIC STRIP TEST SCH ×4 (05:39→21:14)
[2021-10-20] MEDS: INSULIN LISPRO 100 UNITS/ML SUBCUT SCH ×4 (07:47→21:00)
[2021-10-20 08:00] VITALS: BP 133/82
[2021-10-20] MEDS: FAMOTIDINE 20MG TABLET PO SCH (09:25)
[2021-10-20] MEDS: POLYETHYLENE GLYCOL 3350 (17GM) 1 DOSE PACK PO SCH (09:25)
[2021-10-20] MEDS: APIXABAN 5 MG TABLET PO SCH ×2 (09:25→17:47)
[2021-10-20] MEDS: METFORMIN HCL 500MG TABLET PO SCH (09:25)
[2021-10-20 12:00] VITALS: BP 126/69
[2021-10-20] MEDS: CEFTRIAXONE 1,000 MG in DEXTROSE 5% WATER 50 ML IV SCH (12:55)
[2021-10-20 16:00] VITALS: BP 118/65
[2021-10-20 20:00] VITALS: BP 158/68
[2021-10-20] MEDS: ATORVASTATIN CALCIUM 40MG TABLET PO SCH (21:32)
[2021-10-21] VITALS: BP 152/70
[2021-10-21 04:00] VITALS: BP 147/63
[2021-10-21] MEDS: LEVOTHYROXINE SODIUM 75MCG TABLET PO SCH (05:19)
[2021-10-21] MEDS: SODIUM CHLORIDE 0.9% INJ 3ML FLUSH IVF SCH ×3 (05:19→22:00)
[2021-10-21] MEDS: BLOOD SUGAR DIAGNOSTIC STRIP TEST SCH ×4 (05:48→21:00)
[2021-10-21] MEDS: INSULIN LISPRO 100 UNITS/ML SUBCUT SCH ×4 (08:10→20:18)
[2021-10-21] MEDS: METFORMIN HCL 500MG TABLET PO SCH (09:32)
[2021-10-21] MEDS: APIXABAN 5 MG TABLET PO SCH ×2 (09:32→17:48)
[2021-10-21] MEDS: POLYETHYLENE GLYCOL 3350 (17GM) 1 DOSE PACK PO SCH (09:32)
[2021-10-21] MEDS: FAMOTIDINE 20MG TABLET PO SCH (09:32)
[2021-10-21 12:00] VITALS: BP 133/63
[2021-10-21] MEDS: CEFTRIAXONE 1,000 MG in DEXTROSE 5% WATER 50 ML IV SCH (14:56)
[2021-10-21 16:00] VITALS: BP 142/78
[2021-10-21 20:00] VITALS: BP 102/63
[2021-10-21] MEDS: ATORVASTATIN CALCIUM 40MG TABLET PO SCH (20:18)
[2021-10-22] VITALS: BP 126/67
[2021-10-22 04:00] VITALS: BP 117/84
[2021-10-22] MEDS: LEVOTHYROXINE SODIUM 75MCG TABLET PO SCH (05:56)
[2021-10-22] MEDS: BLOOD SUGAR DIAGNOSTIC STRIP TEST SCH ×4 (07:20→21:00)
[2021-10-22] MEDS: INSULIN LISPRO 100 UNITS/ML SUBCUT SCH ×4 (07:50→21:00)
[2021-10-22 08:00] VITALS: BP 112/51
[2021-10-22] MEDS: METFORMIN HCL 500MG TABLET PO SCH (09:46)
[2021-10-22] MEDS: POLYETHYLENE GLYCOL 3350 (17GM) 1 DOSE PACK PO SCH (09:46)
[2021-10-22] MEDS: APIXABAN 5 MG TABLET PO SCH ×2 (09:46→16:01)
[2021-10-22] MEDS: FAMOTIDINE 20MG TABLET PO SCH (09:46)
[2021-10-22 11:37] LABS: EOSINOPHILS % 0.5 % (0.0-5.0); HEMATOCRIT. 29.8 % (36.0-48.0); HEMOGLOBIN. 9.8 g/dL (12.0-16.0); LYMPHOCYTES % 17.3 % (20.0-50.0); MEAN CORPUSCULAR HEMOGLOBIN 28.6 pg (28.0-32.0); MEAN CORPUSCULAR VOLUME 86.8 fL (81.0-99.0); MEAN PLATELET VOLUME 8.6 fl (7.4-10.4); MONOCYTES % 7.5 % (2.0-8.0); NEUTROPHILS % 73.7 % (40.0-76.0); PLATELET 460 x1000/uL (130-400); RED BLOOD CELL COUNT 3.43 mill/uL (4.2-5.4); RED CELL DISTRIBUTION WIDTH 15.4 % (11.6-14.6)
[2021-10-22 12:00] VITALS: BP 128/55
[2021-10-22 12:00] LABS: CHLORIDE 103 mEq/L (98-107)
[2021-10-22] MEDS: CEFTRIAXONE 1,000 MG in DEXTROSE 5% WATER 50 ML IV SCH (13:55)
[2021-10-22] MEDS: SODIUM CHLORIDE 0.9% INJ 3ML FLUSH IVF SCH ×2 (13:55→23:53)
[2021-10-22 16:00] VITALS: BP 97/57
[2021-10-22 20:00] VITALS: BP 149/58
[2021-10-22] MEDS: ACETAMINOPHEN 325MG TABLET PO PRN (23:52)
[2021-10-22] MEDS: ATORVASTATIN CALCIUM 40MG TABLET PO SCH (23:52)
[2021-10-23] VITALS: BP 132/64
[2021-10-23 04:00] VITALS: BP 130/65
[2021-10-23] MEDS: BLOOD SUGAR DIAGNOSTIC STRIP TEST SCH ×4 (06:21→21:00)
[2021-10-23] MEDS: LEVOTHYROXINE SODIUM 75MCG TABLET PO SCH (06:21)
[2021-10-23] MEDS: SODIUM CHLORIDE 0.9% INJ 3ML FLUSH IVF SCH ×3 (06:21→22:48)
[2021-10-23] MEDS: INSULIN LISPRO 100 UNITS/ML SUBCUT SCH ×4 (07:50→21:00)
[2021-10-23 08:00] VITALS: BP 138/60
[2021-10-23] MEDS: APIXABAN 5 MG TABLET PO SCH ×2 (08:59→17:47)
[2021-10-23] MEDS: FAMOTIDINE 20MG TABLET PO SCH (08:59)
[2021-10-23] MEDS: POLYETHYLENE GLYCOL 3350 (17GM) 1 DOSE PACK PO SCH (08:59)
[2021-10-23] MEDS: METFORMIN HCL 500MG TABLET PO SCH (08:59)
[2021-10-23 12:00] VITALS: BP 131/51
[2021-10-23] MEDS: CEFTRIAXONE 1,000 MG in DEXTROSE 5% WATER 50 ML IV SCH (12:29)
[2021-10-23 16:00] VITALS: BP 118/42
[2021-10-23 20:00] VITALS: BP 135/71
[2021-10-23] MEDS: ATORVASTATIN CALCIUM 40MG TABLET PO SCH (22:39)
[2021-10-24] VITALS: BP 110/75
[2021-10-24] MEDS: LORAZEPAM 2MG/ML CPJ IV PRN (05:35)
[2021-10-24] MEDS: SODIUM CHLORIDE 0.9% INJ 3ML FLUSH IVF SCH ×3 (05:48→22:16)
[2021-10-24] MEDS: LEVOTHYROXINE SODIUM 75MCG TABLET PO SCH (05:48)
[2021-10-24] MEDS: BLOOD SUGAR DIAGNOSTIC STRIP TEST SCH ×4 (06:18→22:15)
[2021-10-24] MEDS: INSULIN LISPRO 100 UNITS/ML SUBCUT SCH ×4 (06:18→22:16)
[2021-10-24 08:00] VITALS: BP 132/61
[2021-10-24] MEDS: FAMOTIDINE 20MG TABLET PO SCH (08:30)
[2021-10-24] MEDS: METFORMIN HCL 500MG TABLET PO SCH (08:30)
[2021-10-24] MEDS: POLYETHYLENE GLYCOL 3350 (17GM) 1 DOSE PACK PO SCH (08:30)
[2021-10-24] MEDS: APIXABAN 5 MG TABLET PO SCH ×2 (08:30→17:51)
[2021-10-24 12:00] VITALS: BP 147/66
[2021-10-24] MEDS: ACETAMINOPHEN 325MG TABLET PO PRN (14:54)
[2021-10-24 16:00] VITALS: BP 115/60
[2021-10-24 20:00] VITALS: BP 124/62
[2021-10-24] MEDS: ATORVASTATIN CALCIUM 40MG TABLET PO SCH (22:13)
[2021-10-25] VITALS: BP 128/64
[2021-10-25] MEDS: LEVOTHYROXINE SODIUM 75MCG TABLET PO SCH (06:12)
[2021-10-25] MEDS: BLOOD SUGAR DIAGNOSTIC STRIP TEST SCH ×4 (06:18→21:00)
[2021-10-25] MEDS: SODIUM CHLORIDE 0.9% INJ 3ML FLUSH IVF SCH ×3 (06:18→22:00)
[2021-10-25] MEDS: INSULIN LISPRO 100 UNITS/ML SUBCUT SCH ×4 (07:50→21:00)
[2021-10-25 08:00] VITALS: BP 142/59
[2021-10-25] MEDS: METFORMIN HCL 500MG TABLET PO SCH (08:34)
[2021-10-25] MEDS: FAMOTIDINE 20MG TABLET PO SCH (08:34)
[2021-10-25] MEDS: APIXABAN 5 MG TABLET PO SCH ×2 (08:34→17:35)
[2021-10-25] MEDS: POLYETHYLENE GLYCOL 3350 (17GM) 1 DOSE PACK PO SCH (08:34)
[2021-10-25 11:59] VITALS: BP 132/62
[2021-10-25 16:00] VITALS: BP 120/38
[2021-10-25 20:00] VITALS: BP 144/58
[2021-10-25] MEDS: ATORVASTATIN CALCIUM 40MG TABLET PO SCH (21:00)
[2021-10-26] VITALS: BP 126/62
[2021-10-26] MEDS: ACETAMINOPHEN 325MG TABLET PO PRN ×2 (02:24→22:02)
[2021-10-26 04:00] VITALS: BP 145/58
[2021-10-26] MEDS: LEVOTHYROXINE SODIUM 75MCG TABLET PO SCH (06:14)
[2021-10-26] MEDS: BLOOD SUGAR DIAGNOSTIC STRIP TEST SCH ×4 (06:20→21:58)
[2021-10-26] MEDS: INSULIN LISPRO 100 UNITS/ML SUBCUT SCH ×4 (06:21→21:00)
[2021-10-26] MEDS: SODIUM CHLORIDE 0.9% INJ 3ML FLUSH IVF SCH ×3 (06:40→22:05)
[2021-10-26 08:00] VITALS: BP 145/85
[2021-10-26] MEDS: METFORMIN HCL 500MG TABLET PO SCH (08:17)
[2021-10-26] MEDS: POLYETHYLENE GLYCOL 3350 (17GM) 1 DOSE PACK PO SCH (08:17)
[2021-10-26] MEDS: FAMOTIDINE 20MG TABLET PO SCH (08:17)
[2021-10-26] MEDS: APIXABAN 5 MG TABLET PO SCH ×2 (08:17→18:03)
[2021-10-26 12:00] VITALS: BP 141/59
[2021-10-26 16:42] VITALS: BP 159/59
[2021-10-26 20:00] VITALS: BP 126/57
[2021-10-26] MEDS: ATORVASTATIN CALCIUM 40MG TABLET PO SCH (22:01)
[2021-10-27 04:00] VITALS: BP 119/51
[2021-10-27] MEDS: SODIUM CHLORIDE 0.9% INJ 3ML FLUSH IVF SCH ×3 (06:03→21:06)
[2021-10-27] MEDS: LEVOTHYROXINE SODIUM 75MCG TABLET PO SCH (06:04)
[2021-10-27] MEDS: INSULIN LISPRO 100 UNITS/ML SUBCUT SCH ×4 (06:04→21:00)
[2021-10-27] MEDS: BLOOD SUGAR DIAGNOSTIC STRIP TEST SCH ×4 (06:04→21:13)
[2021-10-27 08:00] VITALS: BP 95/60
[2021-10-27] MEDS: FAMOTIDINE 20MG TABLET PO SCH (09:09)
[2021-10-27] MEDS: POLYETHYLENE GLYCOL 3350 (17GM) 1 DOSE PACK PO SCH (09:09)
[2021-10-27] MEDS: APIXABAN 5 MG TABLET PO SCH ×2 (09:09→18:12)
[2021-10-27] MEDS: METFORMIN HCL 500MG TABLET PO SCH (09:09)
[2021-10-27] MEDS: ACETAMINOPHEN 325MG TABLET PO PRN (09:12)
[2021-10-27 12:00] VITALS: BP 141/74
[2021-10-27 16:00] VITALS: BP 122/72
[2021-10-27 20:00] VITALS: BP 149/59
[2021-10-27] MEDS: ATORVASTATIN CALCIUM 40MG TABLET PO SCH (21:06)
[2021-10-28 04:00] VITALS: BP 134/71
[2021-10-28] MEDS: ACETAMINOPHEN 325MG TABLET PO PRN (06:12)
[2021-10-28] MEDS: LEVOTHYROXINE SODIUM 75MCG TABLET PO SCH (06:12)
[2021-10-28] MEDS: SODIUM CHLORIDE 0.9% INJ 3ML FLUSH IVF SCH ×3 (06:12→21:27)
[2021-10-28] MEDS: BLOOD SUGAR DIAGNOSTIC STRIP TEST SCH ×4 (06:53→21:27)
[2021-10-28] MEDS: INSULIN LISPRO 100 UNITS/ML SUBCUT SCH ×4 (07:50→21:00)
[2021-10-28 08:00] VITALS: BP 119/80
[2021-10-28] MEDS: FAMOTIDINE 20MG TABLET PO SCH (09:01)
[2021-10-28] MEDS: APIXABAN 5 MG TABLET PO SCH ×2 (09:01→17:10)
[2021-10-28] MEDS: METFORMIN HCL 500MG TABLET PO SCH (09:01)
[2021-10-28] MEDS: POLYETHYLENE GLYCOL 3350 (17GM) 1 DOSE PACK PO SCH (09:02)
[2021-10-28 12:00] VITALS: BP 139/50
[2021-10-28 16:00] VITALS: BP 128/54
[2021-10-28 20:00] VITALS: BP 154/86
[2021-10-28] MEDS: ATORVASTATIN CALCIUM 40MG TABLET PO SCH (21:10)
[2021-10-29] VITALS: BP 135/63
[2021-10-29 04:00] VITALS: BP 117/80
[2021-10-29] MEDS: LEVOTHYROXINE SODIUM 75MCG TABLET PO SCH (05:59)
[2021-10-29] MEDS: SODIUM CHLORIDE 0.9% INJ 3ML FLUSH IVF SCH ×3 (06:00→22:03)
[2021-10-29] MEDS: ACETAMINOPHEN 325MG TABLET PO PRN (06:00)
[2021-10-29] MEDS: BLOOD SUGAR DIAGNOSTIC STRIP TEST SCH ×4 (06:46→21:00)
[2021-10-29] MEDS: INSULIN LISPRO 100 UNITS/ML SUBCUT SCH ×4 (06:46→21:00)
[2021-10-29 07:29] LABS: BASOPHILS % 0.5 % (0.0-2.0); EOSINOPHILS % 0.8 % (0.0-5.0); HEMATOCRIT. 34.7 % (36.0-48.0); HEMOGLOBIN. 11.4 g/dL (12.0-16.0); LYMPHOCYTES % 11.7 % (20.0-50.0); MEAN CORPUSCULAR HEMOGLOBIN 28.8 pg (28.0-32.0); MEAN CORPUSCULAR VOLUME 87.8 fL (81.0-99.0); MEAN PLATELET VOLUME 9.2 fl (7.4-10.4); PLATELET 333 x1000/uL (130-400); RED BLOOD CELL COUNT 3.95 mill/uL (4.2-5.4); RED CELL DISTRIBUTION WIDTH 16.4 % (11.6-14.6)
[2021-10-29 07:42] LABS: CHLORIDE 106 mEq/L (98-107)
[2021-10-29 08:00] VITALS: BP 90/62
[2021-10-29] MEDS: FAMOTIDINE 20MG TABLET PO SCH (08:29)
[2021-10-29] MEDS: APIXABAN 5 MG TABLET PO SCH ×2 (08:29→17:24)
[2021-10-29] MEDS: METFORMIN HCL 500MG TABLET PO SCH (08:29)
[2021-10-29] MEDS: POLYETHYLENE GLYCOL 3350 (17GM) 1 DOSE PACK PO SCH (08:29)
[2021-10-29 12:00] VITALS: BP 111/42
[2021-10-29 16:00] VITALS: BP 126/45
[2021-10-29 20:00] VITALS: BP 93/60
[2021-10-29] MEDS: ATORVASTATIN CALCIUM 40MG TABLET PO SCH (22:03)
[2021-10-30] VITALS: BP 132/63
[2021-10-30] MEDS: ACETAMINOPHEN 325MG TABLET PO PRN (02:42)
[2021-10-30 04:00] VITALS: BP 91/64
[2021-10-30] MEDS: SODIUM CHLORIDE 0.9% INJ 3ML FLUSH IVF SCH ×3 (06:22→21:01)
[2021-10-30] MEDS: BLOOD SUGAR DIAGNOSTIC STRIP TEST SCH ×4 (06:22→21:01)
[2021-10-30] MEDS: LEVOTHYROXINE SODIUM 75MCG TABLET PO SCH (06:22)
[2021-10-30] MEDS: INSULIN LISPRO 100 UNITS/ML SUBCUT SCH ×4 (07:50→21:00)
[2021-10-30 08:00] VITALS: BP 136/66
[2021-10-30] MEDS: METFORMIN HCL 500MG TABLET PO SCH (09:22)
[2021-10-30] MEDS: FAMOTIDINE 20MG TABLET PO SCH (09:22)
[2021-10-30] MEDS: POLYETHYLENE GLYCOL 3350 (17GM) 1 DOSE PACK PO SCH (09:22)
[2021-10-30] MEDS: APIXABAN 5 MG TABLET PO SCH ×2 (09:22→18:14)
[2021-10-30 12:00] VITALS: BP 131/67
[2021-10-30 16:00] VITALS: BP 120/60
[2021-10-30 20:00] VITALS: BP 122/57
[2021-10-30] MEDS: ATORVASTATIN CALCIUM 40MG TABLET PO SCH (21:01)
[2021-10-31] VITALS: BP 128/59
[2021-10-31] MEDS: ACETAMINOPHEN 325MG TABLET PO PRN (01:15)
[2021-10-31 04:00] VITALS: BP 126/60
[2021-10-31] MEDS: LEVOTHYROXINE SODIUM 75MCG TABLET PO SCH (06:31)
[2021-10-31] MEDS: SODIUM CHLORIDE 0.9% INJ 3ML FLUSH IVF SCH ×2 (06:31→14:00)
[2021-10-31] MEDS: BLOOD SUGAR DIAGNOSTIC STRIP TEST SCH ×3 (06:38→17:52)
[2021-10-31] MEDS: INSULIN LISPRO 100 UNITS/ML SUBCUT SCH ×3 (06:39→17:50)
[2021-10-31] MEDS: APIXABAN 5 MG TABLET PO SCH ×2 (09:49→18:02)
[2021-10-31] MEDS: POLYETHYLENE GLYCOL 3350 (17GM) 1 DOSE PACK PO SCH (09:49)
[2021-10-31] MEDS: METFORMIN HCL 500MG TABLET PO SCH (09:49)
[2021-10-31] MEDS: FAMOTIDINE 20MG TABLET PO SCH (09:49)
== END 2021-10-31 19:58 | DRG 551 ==
LOC: ER 20:49 → 6WST 10-04 06:32 → EDBEDREQ 10-04 08:04 → EDBEDREQTM 10-04 08:04 → ENRESERV 10-04 17:03 → MICUNO 10-06 01:24 → 7WST 10-06 18:16 → 6EST 10-21 13:57
PROVIDERS: ADMIT Internal Medicine; ATTEND Internal Medicine
DX: M48.061 Spinal stenosis, lumbar region without neurogenic claudication (principal); G93.41 Metabolic encephalopathy; I48.20 Chronic atrial fibrillation, unspecified; I48.0 Paroxysmal atrial fibrillation; G90.8 Other disorders of autonomic nervous system; E11.9 Type 2 diabetes mellitus without complications; F31.9 Bipolar disorder, unspecified; I10 Essential (primary) hypertension; G89.29 Other chronic pain; M54.50 Low back pain, unspecified; Z20.822 Contact with and (suspected) exposure to COVID-19; F03.90 Unspecified dementia, unspecified severity, without behavioral disturbance, psychotic disturbance, mood disturbance, and anxiety; E03.9 Hypothyroidism, unspecified; E87.6 Hypokalemia; I35.0 Nonrheumatic aortic (valve) stenosis; M47.816 Spondylosis without myelopathy or radiculopathy, lumbar region; M51.36 Other intervertebral disc degeneration, lumbar region; Z79.01 Long term (current) use of anticoagulants; Z79.84 Long term (current) use of oral hypoglycemic drugs; Z79.899 Other long term (current) drug therapy; R00.1 Bradycardia, unspecified
CPT/HCPCS: 36415; 71045; 71250; 72100; 72148; 73522; 80048; 80053; 81003; 82140; 82962; 83036; 83735; 84145; 84439; 84443; 84481; 84484; 85025; 85027; 93005; 93306; 96372; 97116; 97162; 97164; 97530; 99285; J0696; J1265; J1650; J1815; J2060; J3490; J7060; U0003; U0005

== ENCOUNTER 2022-03-22 13:35 | Inpatient (IN) | payer MEDICARE ==
[~2022-03-22] VITALS: Ht 152.4 cm; Wt 55.3 kg
[~2022-03-22 13:35] MED LIST: APIX5TAB MT; CHOL2000 PO; DONE5TAB33 PO; LEVO50TA MT; LORA-249 PO; METF-414 PO; OMEP20CA14 PO; POLY17PO3 PO; QUET50TA PO; SIMV-46 PO
[2022-03-22] MEDS ORDERED: ACETAMINOPHEN 325MG TABLET PO STA (18:10)
[2022-03-22] MEDS ORDERED: SODIUM CHLORIDE 0.9% 1,000 ML IV ONE (18:15)
[2022-03-22 18:51] LABS: CHLORIDE 102 mEq/L (98-107)
[2022-03-22 19:16] LABS: INR 1.2; PROTHROMBIN TIME 12.7 sec (9.6-11.0)
[2022-03-22 19:45] LABS: BASOPHILS % 0.3 % (0.0-2.0); HEMATOCRIT. 28.2 % (36.0-48.0); HEMOGLOBIN. 9.4 g/dL (12.0-16.0); LYMPHOCYTES % 25.7 % (20.0-50.0); MEAN CORPUSCULAR VOLUME 86.8 fL (81.0-99.0); MEAN PLATELET VOLUME 10.1 fl (7.4-10.4); MONOCYTES % 9.7 % (2.0-8.0); NEUTROPHILS % 64.3 % (40.0-76.0); PLATELET 241 x1000/uL (130-400); RED BLOOD CELL COUNT 3.24 mill/uL (4.2-5.4); RED CELL DISTRIBUTION WIDTH 15.3 % (11.6-14.6)
[2022-03-22] MEDS ORDERED: ACETAMINOPHEN 325MG TABLET PO NR (19:45)
[2022-03-22] MEDS ORDERED: CEFTRIAXONE 2 G PREMIX 50 ML IV ONE (21:00)
[2022-03-22] MEDS ORDERED: CEFTRIAXONE 2 G in DEXTROSE 5% WATER 50 ML IV NR (21:15)
[2022-03-22] MEDS: VANCOMYCIN 1G PREMIX 200 ML IV SCH (21:24)
[2022-03-23 09:20] VITALS: BP 138/60
[2022-03-23 09:30] VITALS: BP 138/60
[2022-03-23 12:00] VITALS: BP 140/72
[2022-03-23] MEDS ORDERED: APIXABAN 5 MG TABLET PO SCH (13:45)
[2022-03-23] MEDS ORDERED: ONDANSETRON HCL 4MG/2ML INJ IV PRN (13:45)
[2022-03-23] MEDS ORDERED: LEVOTHYROXINE SODIUM 50MCG TABLET PO SCH (13:45)
[2022-03-23] MEDS ORDERED: CLONIDINE 0.1MG TABLET PO PRN (13:45)
[2022-03-23] MEDS ORDERED: IPRATROPIUM/ALBUTEROL 0.5-3(2.5)MG/3ML NEB NEB PRN (13:45)
[2022-03-23] MEDS ORDERED: ACETAMINOPHEN 325MG TABLET PO PRN (13:45)
[2022-03-23] MEDS ORDERED: CEFTRIAXONE 1 G PREMIX 50 ML IV SCH (14:00)
[2022-03-23] MEDS ORDERED: DEXTROSE 50% WATER 50ML SYRINGE IV PRN (14:15)
[2022-03-23 16:00] VITALS: BP 146/63
[2022-03-23] MEDS: BLOOD SUGAR DIAGNOSTIC STRIP TEST SCH ×2 (17:10→21:00)
[2022-03-23 17:12] LABS: CREATINE KINASE 55 IU/L (26-192); CREATINE KINASE MB FRACTION < 1.0 ng/mL (0.5-3.6)
[2022-03-23] MEDS: INSULIN LISPRO 100 UNITS/ML SUBCUT SCH ×2 (17:40→21:00)
[2022-03-23] MEDS: QUETIAPINE FUMARATE 50MG TABLET PO SCH (18:32)
[2022-03-23] MEDS: CEFTRIAXONE 1,000 MG in DEXTROSE 5% WATER 50 ML IV SCH (18:32)
[2022-03-23 20:00] VITALS: BP 126/70
[2022-03-23] MEDS: DONEPEZIL HCL 5MG TABLET PO SCH (22:34)
[2022-03-23] MEDS: APIXABAN 2.5 MG TABLET PO SCH (22:34)
[2022-03-23] MEDS: ATORVASTATIN CALCIUM 40MG TABLET PO SCH (22:34)
[2022-03-24] VITALS: BP 135/58
[2022-03-24 04:00] VITALS: BP 145/65
[2022-03-24] MEDS: BLOOD SUGAR DIAGNOSTIC STRIP TEST SCH ×4 (07:10→21:00)
[2022-03-24] MEDS: INSULIN LISPRO 100 UNITS/ML SUBCUT SCH ×4 (07:40→21:00)
[2022-03-24 08:00] VITALS: BP 132/58
[2022-03-24] MEDS ORDERED: OMEPRAZOLE 20MG CAPSULE EXTENDED RELEASE PO SCH (09:00)
[2022-03-24] MEDS ORDERED: LEVOTHYROXINE SODIUM 50MCG TABLET PO SCH (09:00)
[2022-03-24] MEDS: PANTOPRAZOLE 40MG DR TABLET PO SCH (09:02)
[2022-03-24] MEDS: LORAZEPAM 0.5MG TABLET PO SCH (09:02)
[2022-03-24] MEDS: LEVOTHYROXINE SODIUM 75MCG TABLET PO SCH (09:02)
[2022-03-24] MEDS: APIXABAN 2.5 MG TABLET PO SCH ×2 (09:02→21:00)
[2022-03-24] MEDS: QUETIAPINE FUMARATE 50MG TABLET PO SCH ×2 (09:05→17:22)
[2022-03-24 09:40] LABS: CREATINE KINASE MB FRACTION 1.6 ng/mL (0.5-3.6)
[2022-03-24 12:00] VITALS: BP 138/53
[2022-03-24 13:31] LABS: BASOPHILS % 1.5 % (0.0-2.0); EOSINOPHILS % 1.1 % (0.0-5.0); HEMATOCRIT. 29.1 % (36.0-48.0); HEMOGLOBIN. 9.8 g/dL (12.0-16.0); LYMPHOCYTES % 33.4 % (20.0-50.0); MEAN CORPUSCULAR HEMOGLOBIN 29.1 pg (28.0-32.0); MEAN CORPUSCULAR VOLUME 86.6 fL (81.0-99.0); MEAN PLATELET VOLUME 10.7 fl (7.4-10.4); MONOCYTES % 7.9 % (2.0-8.0); NEUTROPHILS % 56.1 % (40.0-76.0); PLATELET 268 x1000/uL (130-400); RED BLOOD CELL COUNT 3.36 mill/uL (4.2-5.4)
[2022-03-24 13:48] LABS: CHLORIDE 102 mEq/L (98-107)
[2022-03-24] MEDS ORDERED: VANCOMYCIN 1G PREMIX 200 ML IV NR (14:00)
[2022-03-24 15:59] VITALS: BP 145/61
[2022-03-24] MEDS: CEFTRIAXONE 1,000 MG in DEXTROSE 5% WATER 50 ML IV SCH (17:22)
[2022-03-24 20:00] VITALS: BP 133/75
[2022-03-24] MEDS: ATORVASTATIN CALCIUM 40MG TABLET PO SCH (21:00)
[2022-03-24] MEDS: DONEPEZIL HCL 5MG TABLET PO SCH (21:00)
[2022-03-25] VITALS: BP_SYST 139; BP_SYST 159; BP_DIAS 92
[2022-03-25 04:00] VITALS: BP 129/76
[2022-03-25] MEDS: BLOOD SUGAR DIAGNOSTIC STRIP TEST SCH ×3 (05:27→17:26)
[2022-03-25] MEDS: LEVOTHYROXINE SODIUM 75MCG TABLET PO SCH (05:29)
[2022-03-25] MEDS: PANTOPRAZOLE 40MG DR TABLET PO SCH (05:29)
[2022-03-25] MEDS: INSULIN LISPRO 100 UNITS/ML SUBCUT SCH ×3 (05:30→17:26)
[2022-03-25 08:00] VITALS: BP 142/62
[2022-03-25] MEDS: APIXABAN 2.5 MG TABLET PO SCH (09:47)
[2022-03-25] MEDS: QUETIAPINE FUMARATE 50MG TABLET PO SCH ×2 (09:47→17:18)
[2022-03-25] MEDS: LORAZEPAM 0.5MG TABLET PO SCH (09:56)
[2022-03-25] MEDS ORDERED: LACTULOSE 20G/30ML UDC PO SCH (11:00)
[2022-03-25] MEDS ORDERED: DOCUSATE SODIUM 100MG CAPSULE PO SCH (11:00)
[2022-03-25 12:00] VITALS: BP 135/69
[2022-03-25] MEDS ORDERED: VANCOMYCIN 750MG PREMIX 150 ML IV SCH (14:00)
[2022-03-25 16:00] VITALS: BP 159/89
[2022-03-25] MEDS ORDERED: AMOX1TAB16 MT (16:04)
[2022-03-25] MEDS ORDERED: SULF1TAB48 MT (16:04)
[2022-03-25] MEDS: CEFTRIAXONE 1,000 MG in DEXTROSE 5% WATER 50 ML IV SCH (16:40)
[2022-03-25 18:57] VITALS: BP 123/63
[2022-03-25] MEDS ORDERED: METOPROLOL TARTRATE 50MG TABLET PO SCH (19:00)
[2022-03-26] MEDS ORDERED: FAMOTIDINE 20MG TABLET PO SCH (07:10)
== END 2022-03-25 20:15 | disposition home or self-care (01) | DRG 603 ==
LOC: ER 14:38 → MICUSO 22:16 → EDBEDREQ 22:17 → EDBEDREQTM 22:17 → 8WST 03-23 09:41
PROVIDERS: ADMIT Internal Medicine; ATTEND Internal Medicine
DX: L03.113 Cellulitis of right upper limb (principal); I48.20 Chronic atrial fibrillation, unspecified; I10 Essential (primary) hypertension; E11.9 Type 2 diabetes mellitus without complications; Z20.822 Contact with and (suspected) exposure to COVID-19; F03.90 Unspecified dementia, unspecified severity, without behavioral disturbance, psychotic disturbance, mood disturbance, and anxiety; F20.9 Schizophrenia, unspecified; Z79.01 Long term (current) use of anticoagulants; Z87.891 Personal history of nicotine dependence; Z86.73 Personal history of transient ischemic attack (TIA), and cerebral infarction without residual deficits; Z74.01 Bed confinement status
CPT/HCPCS: 36415; 73080; 73090; 73130; 80048; 80053; 82550; 82553; 82962; 83036; 83605; 84484; 85025; 85651; 87426; 93970; 99285; C9803; G0378; J0696; J1815; J3370; J7030; J7060